=== PATIENT | male | born 1940 | race Caucasian/White ===

== ENCOUNTER → 2018-02-19 09:26 | Outpatient (CLI) | payer OTHER, SELFPAY ==
--- NOTE | 2018-02-19 | DI.RAD.S_ITS ---
PROCEDURE: XR KNEE LT 3V INDICATIONS: Left knee medial degenerative joint disease TECHNIQUE: 3 views of the knee were acquired. COMPARISON: None. FINDINGS: Bones: No fractures or dislocations. No suspicious bony lesions. There is a moderate degree of narrowing of the interspace at the medial compartment of the left knee, and on the lateral view no joint effusion or intra-articular loose body is seen. Moderate patellofemoral joint osteoarthritis appears present at the medial and lateral facet. Soft tissues: No joint effusion. No suspicious soft tissue calcifications. IMPRESSION: Moderate knee joint osteoarthritis at the medial compartment and the patellofemoral joint, no trauma found. Dictated by: Alberto May M.D. on 02/19/2018 at 11:23 Approved by: Alberto May M.D. on 02/19/2018 at 11:24
[2018-02-19 11:10] LABS: Add Manual Diff / Slide Review NO; Basophils Percent Auto 0.5 % (0-2); Eosinophils Percent Auto 1.6 % (2-4); Hematocrit 46.6 % (41-53); Hemoglobin 15.9 g/dL (13.5-17.5); Lymphocytes Percent Auto 28.7 % (25-40); Mean Corpuscular HGB Conc 34.3 % (30-36); Mean Corpuscular Volume 96.2 fL (80-100); Monocytes Percent Auto 9.2 % (3-14); Neutrophils Absolute Auto 3000 /uL (3000-5900); Platelet Count 148 X10^3/uL (150-400); Red Blood Cell Count 4.84 X10^6/uL (4.5-5.9); Red Cell Distribution Width 13.9 % (11.6-14.8)
[2018-02-19 11:21] LABS: Alanine Aminotransferase 26 IU/L (21-72); Albumin 4.6 g/dL (3.5-5.0); Albumin Globulin Ratio 1.4 (1.0-2.8); Alkaline Phosphatase 53 U/L (38-126); Aspartate Aminotransferase 28 IU/L (17-59); Bilirubin Total 0.7 mg/dL (0.2-1.3); Blood Urea Nitrogen 16 mg/dL (9-20); Calcium 9.7 mg/dL (8.4-10.2); Carbon Dioxide 30 mmol/L (22-32); Chloride 101 mmol/L (98-107); Cholesterol 220 mg/dL (140-199); Estimated Glomerular Filt Rate > 60.0 mL/min (>60); Globulin 3.2 g/dL (1.7-4.1); Glucose 96 mg/dL (80-110); HDL Cholesterol 53 mg/dL (40-60); HEMOLYSIS < 15 (0-50); LDL Cholesterol Calculated 141 mg/dL (<100); Potassium 5.2 mmol/L (3.4-5.1); Sodium 140 mmol/L (137-145); Total Protein 7.8 g/dL (6.3-8.2); Triglycerides 129 mg/dL (35-150)
== END ==
PROVIDERS: Visit Provider Family Medicine
DX: I10 Essential (primary) hypertension (principal)
CPT/HCPCS: 36415; 73562; 80053; 80061; 85025

== ENCOUNTER → 2018-07-15 11:55 | Outpatient (CLI) | payer OTHER, SELFPAY ==
--- NOTE | 2018-07-15 | DI.RAD.S_ITS ---
PROCEDURE: XR KNEE LT 3V INDICATIONS: L KNEE DJD MEDIAL TECHNIQUE: 3 views of the knee were acquired. COMPARISON: [facility], , XR KNEE LT 3V, 02/19/2018, 9:08. FINDINGS: Bones: No fractures or dislocations. No suspicious bony lesions. There is tricompartmental knee joint degeneration, most pronounced in the patellofemoral compartment and medial femorotibial compartment. Soft tissues: Small joint effusion. Vascular calcifications consistent with atherosclerosis. IMPRESSION: Moderate tricompartmental degenerative joint disease. Dictated by: Geovanny Sorto M.D. on 07/15/2018 at 17:31 Approved by: Geovanny Sorto M.D. on 07/15/2018 at 17:33
== END ==
PROVIDERS: PCP Family Medicine; Visit Provider Family Medicine
DX: M17.12 Unilateral primary osteoarthritis, left knee (principal)
CPT/HCPCS: 73562